=== PATIENT | female | born 1995 | race African-American/Black ===

== ENCOUNTER 2020-07-06 14:56 | Emergency (ER) | payer BC ==
[2020-07-06 15:27] VITALS: TEMP 98.6; BMI 38.6
[2020-07-06 18:38] LABS: BASO % 0.6 % (0-2.0); EOS % 0.5 % (0-4.5); HEMATOCRIT 42.6 % (32.4-45.2); HEMOGLOBIN 14.2 GM/dL (10.7-15.3); LYMPH % 26.5 % (8-40); MCH 29.3 pg (25.7-33.7); MCHC 33.2 g/dl (32.0-36.0); MEAN CELL VOLUME 88.2 fl (80-96); MEAN PLT VOLUME 8.4 fl (7.5-11.1); MONO % 5.2 % (3.8-10.2); NEUT % 67.2 % (42.8-82.8); PLATELET COUNT 290 K/MM3 (134-434); RBC 4.83 M/mm3 (3.60-5.2); RDW 13.8 % (11.6-15.6); WHITE BLOOD COUNT 11.8 K/mm3 (4.0-10.0)
[2020-07-06 18:53] LABS: COCAINE, UR NEGATIVE ng/ml (CUTOFF=300); METHADONE, UR NEGATIVE ng/ml (CUTOFF=300); OPIATES, URI NEGATIVE ng/ml (CUTOFF=300); URINE BARBITURATES NEGATIVE ng/ml (CUTOFF=200); URINE BENZODIAZEPINES NEGATIVE ng/ml (CUTOFF=200)
[2020-07-06 18:54] LABS: PHENCYCLIDINE,URINE NEGATIVE ng/ml (CUTOFF=25); URINE AMPHETAMINES NEGATIVE ng/ml (CUTOFF=500)
[2020-07-06 19:03] LABS: CHLORIDE 108 mmol/L (98-107); SODIUM 139 mmol/L (136-145)
[2020-07-06 19:05] LABS: CALCIUM 9.1 mg/dL (8.5-10.1)
[2020-07-06 19:06] LABS: ALBUMIN 4.2 g/dl (3.4-5.0); ANION GAP 8 MMOL/L (8-16); BLOOD UREA NITROGEN 5.6 mg/dL (7-18); CO2 22 mmol/L (21-32); GLUCOSE,RANDOM 77 mg/dL (74-106)
[2020-07-06 19:09] LABS: CREATININE 0.7 mg/dL (0.55-1.3); SGOT/AST 20 U/L (15-37); SGPT/ALT 23 U/L (13-61)
[2020-07-06 19:10] LABS: BILIRUBIN,TOTAL 0.6 mg/dL (0.2-1); TOT PROT 8.4 g/dl (6.4-8.2)
[2020-07-06 19:12] LABS: ALK PHOS 75 U/L (45-117)
[2020-07-06 19:52] VITALS: BP 105/62; PULSE 91
== END 2020-07-06 19:51 | disposition home or self-care (01) ==
LOC: JER 14:56
DX: R00.2 Palpitations (principal)
CPT/HCPCS: 36415; 71046-TC-FY; 80053; 80307; 82550; 82553; 84443; 84484; 84703; 85025; 93005; 93010; 99282-25

== ENCOUNTER 2020-08-02 13:54 | Emergency (ER) | payer BC ==
[2020-08-02 14:06] VITALS: BP 104/72; PULSE 85; TEMP 98; BMI 38.6
[2020-08-02] MEDS ORDERED: IBUPROFEN 600 MG TABLET (FP) PO ONE ×2 (14:36→14:41)
== END 2020-08-02 15:11 | disposition home or self-care (01) ==
LOC: JERFT 13:54
DX: R04.0 Epistaxis (principal)
CPT/HCPCS: 99283-25

== ENCOUNTER 2022-07-12 16:12 | Emergency (ER) | payer BC ==
[2022-07-12 16:55] VITALS: BP 110/62; PULSE 78; RESP 20; TEMP 98.3; BMI 37.4
[2022-07-12] MEDS ORDERED: ACETAMINOPHEN 325 MG TABLET (FP) PO ONE (17:09)
[2022-07-12] MEDS ORDERED: IBUPROFEN 600 MG TABLET (FP) PO ONE ×2 (17:10→17:14)
[2022-07-12] MEDS ORDERED: METOCLOPRAMIDE HCL 10 MG TABLET (FP) PO ONE ×2 (17:10→17:14)
[2022-07-12] MEDS ORDERED: ACETAMINOPHEN 325 MG TABLET (FP) ONE (17:14)
[2022-07-12] MEDS ORDERED: SODIUM CHLORIDE 0.9% 500 ML INFUS.BAG IV ONE (17:16)
[2022-07-12] MEDS ORDERED: METOCLOPRAMIDE HCL INJECTION 10 MG/2 ML VIAL IVPUSH ONE (17:25)
[2022-07-12] MEDS ORDERED: ACETAMINOPHEN INJECTION 100 ML IVPB ONE (17:25)
[2022-07-12] MEDS ORDERED: METOCLOPRAMIDE HCL INJECTION 10 MG/2 ML VIAL ONE (17:25)
[2022-07-12] MEDS ORDERED: ACETAMINOPHEN 1000 MG/100 ML BAG IVPB ONE (17:25)
[2022-07-12 17:54] LABS: HEMATOCRIT 42.7 % (32.4-45.2); HEMOGLOBIN 14.4 GM/dL (10.7-15.3); MCH 28.8 pg (25.7-33.7); MCHC 33.7 g/dl (32.0-36.0); MEAN CELL VOLUME 85.5 fl (80-96); MEAN PLT VOLUME 7.7 fl (7.5-11.1); PLATELET COUNT 313 10^3/uL (134-434); RBC 4.99 M/mm3 (3.60-5.2); RDW 14.1 % (11.6-15.6)
[2022-07-12 18:05] LABS: POTASSIUM 3.8 mmol/L (3.5-5.1)
[2022-07-12 18:07] LABS: CALCIUM 9.3 mg/dL (8.5-10.1)
[2022-07-12 18:10] LABS: CREATININE 0.9 mg/dL (0.55-1.3)
[2022-07-12 18:12] LABS: BILIRUBIN,TOTAL 0.6 mg/dL (0.2-1); TOT PROT 8.5 g/dl (6.4-8.2)
[2022-07-12] MEDS ORDERED: SODIUM CHLORIDE 1,000 ML IV ONE (18:33)
== END 2022-07-12 19:47 | disposition home or self-care (01) ==
LOC: JER 16:12
PROC: 3E033NZ Introduction of Analgesics, Hypnotics, Sedatives into Peripheral Vein, Percutaneous Approach (ICD-10-PCS; principal; 2022-07-12)
PROC: 3E033GC Introduction of Other Therapeutic Substance into Peripheral Vein, Percutaneous Approach (ICD-10-PCS; 2022-07-12)
PROC: 3E0337Z Introduction of Electrolytic and Water Balance Substance into Peripheral Vein, Percutaneous Approach (ICD-10-PCS; 2022-07-12)
DX: R51.9 Headache, unspecified (principal); G89.29 Other chronic pain; R42 Dizziness and giddiness; R11.10 Vomiting, unspecified; M54.2 Cervicalgia; H57.10 Ocular pain, unspecified eye
CPT/HCPCS: 36415; 80053; 84703; 85027; 99284-25

== ENCOUNTER 2023-06-08 11:28 | Emergency (ER) | payer BC, OTHER ==
[2023-06-08 11:34] VITALS: BP 102/57; PULSE 81; RESP 18; TEMP 98.9; BMI 38.2
== END 2023-06-08 12:10 | disposition home or self-care (01) ==
LOC: JERFT 11:28
DX: R04.0 Epistaxis (principal)
CPT/HCPCS: 99283-25